=== PATIENT | female | born 1995 | race Caucasian/White ===

== ENCOUNTER 2024-03-21 05:28 | Emergency (ER) | payer OTHER ==
[~2024-03-21] VITALS: Ht 154.9 cm; Wt 52.2 kg
[2024-03-21 07:01] VITALS: BP 118/66; TEMP 97.7; O2SAT 98
[2024-03-21] MEDS: FLUORESCEIN SODIUM OPHTH 1 EA STRIP OP ONE ×2 (07:30)
[2024-03-21] MEDS: TETRAcaine 5 ML BOTTLE EACHEYE ONE (07:30)
[2024-03-21 07:48] LABS: PREGNANCY TEST URINE QUAL NEGATIVE (NEGATIVE)
[2024-03-21] MEDS ORDERED: TETRAcaine 5 ML BOTTLE ONE (07:52)
[2024-03-21] MEDS ORDERED: FLUORESCEIN SODIUM OPHTH 1 EA STRIP ONE (07:54)
[2024-03-21] MEDS ORDERED: POLY10DR OP (08:22)
[2024-03-21] MEDS: TDAP [DIPH/PERTUSSIS/TET] 0.5 ML VIAL IM ONE (08:30)
[2024-03-21] MEDS ORDERED: TDAP [DIPH/PERTUSSIS/TET] 0.5 ML VIAL IM ONE (08:42)
== END 2024-03-21 08:48 | disposition home or self-care (01) ==
LOC: ER 05:32
DX: H57.9 Unspecified disorder of eye and adnexa (principal)
CPT/HCPCS: 84703-TC; 90715